=== PATIENT | female | born 1985 | race Caucasian/White ===

== ENCOUNTER 2019-04-26 00:41 | Observation (INO) | payer OTHER ==
[~2019-04-26] VITALS: Ht 162.6 cm; Wt 59.0 kg
[2019-04-26] MEDS ORDERED: PNV1TABL76 PO (01:26)
== END 2019-04-26 04:15 | disposition home or self-care (01) ==
LOC: 8 EST LDRP 00:41
PROVIDERS: ADMIT Specialist; ATTEND Specialist
DX: O46.92 Antepartum hemorrhage, unspecified, second trimester (principal); Z3A.26 26 weeks gestation of pregnancy
CPT/HCPCS: 76805; 76817; 99281; G0378